=== PATIENT | female | born 1995 | race Caucasian/White ===

== ENCOUNTER 2017-02-18 16:03 | Emergency (ER) | payer OTHER ==
[~2017-02-18] VITALS: Wt 67.5 kg
[~2017-02-18 16:03] MED LIST: CALC600T11 PO; FERR-31 PO; PRENAT PO
[2017-02-18] MEDS ORDERED: IBUP-1542 PO (16:47)
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
== END 2017-02-18 17:14 | disposition home or self-care (01) ==
LOC: FTE 16:03
DX: S49.92XA Unspecified injury of left shoulder and upper arm, initial encounter (principal); V49.40XA Driver injured in collision with unspecified motor vehicles in traffic accident, initial encounter
CPT/HCPCS: 99283

== ENCOUNTER 2017-02-28 21:01 | Emergency (ER) | payer OTHER ==
[~2017-02-28] VITALS: Ht 154.9 cm; Wt 67.5 kg
[~2017-02-28 21:01] MED LIST changes: +IBUP-1542 PO
[2017-02-28 21:04] VITALS: Ht 154.9 cm; Wt 67.5 kg
[2017-02-28] MEDS ORDERED: IBUP-1542 PO (21:37)
--- NOTE | 2017-02-28 21:53 | ERD ---
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 Patient described the pain as throbbing pain, 6/10 scale, intermittent, worse upon movement. Patient denies any direct trauma and affected area. Patient denies any numbness or tingling. Patient denies any difficulty movement of the joints. She denies any numbness or tingling. ROS All systems reviewed and are negative except as per history of present illness. Medications Home Meds Active Scripts Ibuprofen* (Motrin*) 600 Mg Tab, 600 MG PO Q6H Y for PAIN AND OR ELEVATED TEMP, #30 TAB Prov:AMAURI MORRISON NP 02/28/17 Ibuprofen* (Motrin*) 600 Mg Tab, 600 MG PO Q6, #30 TAB Prov:LAQUITA ATKINSON PA-C 02/18/17 Reported Medications Calcium Carbonate* (Calcium Carbonate*) 600 MG Ca Tab, 600 MG PO DAILY, TAB 11/30/15 Ferrous Sulfate (Iron Supplement) 1 Tab Tablet, 1 TAB PO, TAB 11/30/15 Multivit/Min/Fol Ac/Iron/Pren* ( S*) 1 Tab Tab, 1 TAB PO DAILY, TAB 09/02/15 Allergies Allergies: Coded Allergies: No Known Drug Allergies (Verified Allergy, Unknown, 02/28/17) PMhx/Soc Medical and Surgical Hx: pt denies Medical Hx, pt denies Surgical Hx History of Surgery: No (DENIES MEDICAL AND SURGICAL HX.) Anesthesia Reaction: No Hx Neurological Disorder: No Hx Respiratory Disorders: No Hx Cardiac Disorders: No Hx Psychiatric Problems: No Hx Miscellaneous Medical Probl: No Hx Alcohol Use: No Hx Substance Use: No Hx Tobacco Use: No Smoking Status: Never smoker FmHx Family History: No coronary disease, No diabetes, No other Physical Exam Vitals Vital Signs Date Time Temp Pulse Resp B/P Pulse Ox O2 Delivery O2 Flow Rate FiO2 02/28/17 21:04 99.9 110 18 114/76 98 Physical Exam GENERAL: The patient is well developed and appropriate for usual state of health, in no apparent distress. CHEST: Clear to auscultation bilaterally. There are no rales, wheezes or rhonchi. HEART: Regular rate and rhythm. No murmurs, clicks, rubs or gallops. No S3 or S4. ABDOMEN: Soft, nontender and nondistended. Good bowel sounds. No rebound or guarding. No gross peritonitis. No gross organomegaly or masses. No Oakley sign or McBurney point tenderness. BACK: No midline or flank tenderness. EXTREMITIES: Mild tenderness on palpation on the palmar aspect of the right hip and in the fourth digit of the right hand, able to do full range of motion without any restriction. Equal pulses bilaterally. Full range of motion of other joints of the body. Grossly neurovascularly intact. NEURO: Alert and oriented. Cranial nerves 2-12 intact. Motor strength in all 4 extremities with 5/5 strength. Sensation grossly intact. Normal speech and gait. SKIN: There is no apparent rash or petechia. The skin is warm and dry. HEMATOLOGIC AND LYMPHATIC: There is no evidence of excessive bruising or lymphedema. No gross cervical, axillary, or inguinal lymphadenopathy. Procedures/MDM Medical Decision Making: Patient's pain is most likely consistent with a hand strain. There is no suspicion for neurovascular compromise. Patient has intact sensation and circulation of the affected extremity. There is low suspicion for septic arthritis. Patient does not have any fever. Radiology exams of the affected area does not show any fracture or dislocation. Disposition: Home. Patient is given prescription for ibuprofen for pain. Patient was advised to elevate the affected area and apply ice on affected area. Patient was advised that if symptoms are worse, numbness, tingling, high fever, unable to move joint, worsening symptoms, to return to emergency department immediately. Otherwise, patient is advised to follow up with the primary care doctor in 5-7 days for reevaluation of symptoms. Departure Diagnosis: Primary Impression: Hand strain Encounter type: initial encounter Laterality: right Qualified Code: S66.911A - Hand strain, right, initial encounter Condition: Stable Patient Instructions: Sprain Hand AMAURI MORRISON NP Feb 28, 2017 21:53
[2017-03-01] MEDS ORDERED: IBUP-1542 PO (21:14)
== END 2017-02-28 22:29 | disposition home or self-care (01) ==
LOC: FTE 21:01
DX: S66.911A Strain of unspecified muscle, fascia and tendon at wrist and hand level, right hand, initial encounter (principal); X50.9XXA Other and unspecified overexertion or strenuous movements or postures, initial encounter; Y92.9 Unspecified place or not applicable
CPT/HCPCS: 99283

== ENCOUNTER 2017-03-01 19:16 | Emergency (ER) | payer OTHER ==
[~2017-03-01] VITALS: Ht 157.5 cm; Wt 67.0 kg
[~2017-03-01 19:16] MED LIST changes: +CLIN-73 PO; +LEVO50TA74 PO; +ONDA-43 PO
[2017-03-01 19:20] VITALS: Ht 157.5 cm; Wt 67.0 kg
[2017-03-01] MEDS ORDERED: IBUPROFEN 600 MG TAB PO ONE (20:00)
[2017-03-01] MEDS ORDERED: LORAZEPAM 1 MG TAB PO ONE (20:00)
--- NOTE | 2017-03-01 21:04 | RADRPT ---
PROCEDURE: XR Chest. CLINICAL INDICATION: Chest pain. TECHNIQUE: Single frontal chest x-ray. COMPARISON: None available. FINDINGS: The cardiomediastinal silhouette is unremarkable. No pneumothorax, pleural effusion or consolidation is seen. No acute osseous abnormality is noted. IMPRESSION: 1. No acute cardiopulmonary abnormality. RPTAT: HFN .Josep Mazariegos MD, MD Date Time Electronically viewed and signed by .Josep Mazarigeos MD, on 03/01/2017 21:04 .N/
[2017-03-01] MEDS ORDERED: IBUP-1542 PO (21:14)
[2017-03-01 21:20] VITALS: BP 122/71; PULSE 91; RESP 18; TEMP 98.9
--- NOTE | 2017-03-01 23:15 | ERD ---
ER Documentation Chief Complaint Date/Time DATE: 03/01/17 TIME: 23:12 Chief Complaint MID STERNAL CP RADIATING TO RIGHT ARM SINCE AM. DENIES SOB. HPI This patient is a 21-year-old female with no significant medical history presenting to the emergency department with complaints of midsternal chest pain radiating to the right arm since this morning. Symptoms have been constant and she describes chest pain as sharp and pressure. She denies any shortness of breath. She has never had these symptoms before. She denies history of anxiety. She reports a tingling feeling in the right hand. She has had a moderate amount of stress in her life currently. She denies nausea, vomiting, diarrhea, fevers, chills, dizziness, headache, or other symptoms. ROS All systems reviewed and are negative except as per history of present illness. Medications Home Meds Active Scripts Ibuprofen* (Motrin*) 600 Mg Tab, 600 MG PO Q6, #30 TAB Prov:GALE NASH PA-C 03/01/17 Ibuprofen* (Motrin*) 600 Mg Tab, 600 MG PO Q6H Y for PAIN AND OR ELEVATED TEMP, #30 TAB Prov:AMAURI MORRISON NP 02/28/17 Ibuprofen* (Motrin*) 600 Mg Tab, 600 MG PO Q6, #30 TAB Prov:LAQUITA ATKINSON PA-C 02/18/17 Reported Medications Calcium Carbonate* (Calcium Carbonate*) 600 MG Ca Tab, 600 MG PO DAILY, TAB 11/30/15 Ferrous Sulfate (Iron Supplement) 1 Tab Tablet, 1 TAB PO, TAB 11/30/15 Multivit/Min/Fol Ac/Iron/Pren* ( S*) 1 Tab Tab, 1 TAB PO DAILY, TAB 09/02/15 Allergies Allergies: Coded Allergies: No Known Drug Allergies (Verified Allergy, Unknown, 02/28/17) PMhx/Soc History of Surgery: No (DENIES MEDICAL AND SURGICAL HX.) Anesthesia Reaction: No Hx Neurological Disorder: No Hx Respiratory Disorders: No Hx Cardiac Disorders: No Hx Psychiatric Problems: No Hx Miscellaneous Medical Probl: No Hx Alcohol Use: No Hx Substance Use: No Hx Tobacco Use: No Smoking Status: Never smoker Physical Exam Vitals Vital Signs Date Time Temp Pulse Resp B/P Pulse Ox O2 Delivery O2 Flow Rate FiO2 03/01/17 21:20 98.9 91 18 122/71 99 Room Air 03/01/17 19:20 100.4 101 20 118/75 99 Physical Exam Const: Nontoxic, well-appearing female in no acute distress. Head: Atraumatic Eyes: Normal Conjunctiva ENT: Normal External Ears, Nose and Mouth. Neck: Full range of motion..~ No meningismus. Resp: Clear to auscultation bilaterally Cardio: Regular rate and rhythm, no murmurs. There is chest wall tenderness palpation over the sternum and the left side of the chest. Abd: Soft, non tender, non distended. Normal bowel sounds Skin: No petechiae or rashes Back: No midline or flank tenderness Ext: No cyanosis, or edema Neur: Awake and alert Psych: Normal Mood and Affect Results 24 hrs Current Medications Medications (Trade) Dose Ordered Sig/Rivera Route PRN Reason Start Time Stop Time Status Last Admin Dose Admin Lorazepam (Ativan) 1 mg ONCE ONCE PO 03/01/17 20:00 03/01/17 20:01 DC 03/01/17 19:50 Ibuprofen (Motrin) 600 mg ONCE ONCE PO 03/01/17 20:00 03/01/17 20:01 DC 03/01/17 19:50 Procedures/MDM 21-year-old female presents to the emergency department with complaints of chest pain and tingling in the right arm. Physical examination showed mild temperature 100.4F, which may be reactive secondary to pain or anxiety. She was given Ativan and ibuprofen in the department and temperature reduced to 98.9 F prior to discharge. The patient is feeling improved on reevaluation. I low suspicion for acute coronary syndrome, aortic dissection, pneumothorax, or other emergent etiologies. Chest x-ray was negative for acute abnormalities. The patient was stable for discharge with a prescription for ibuprofen. Most likely differential is costochondritis. The patient is to have close follow-up with her primary care physician. She is to return immediately for any new or worsening symptoms. PROCEDURE: XR Chest. CLINICAL INDICATION: Chest pain. TECHNIQUE: Single frontal chest x-ray. COMPARISON: None available. FINDINGS: The cardiomediastinal silhouette is unremarkable. No pneumothorax, pleural effusion or consolidation is seen. No acute osseous abnormality is noted. IMPRESSION: 1. No acute cardiopulmonary abnormality. RPTAT: HFN .Josep Mazariegos MD, Date Time Electronically viewed and signed by .Josep Mazariegos MD, on 03/01/2017 21: 04 EKG: Interpreted by ED physician, Dr. Glynn Bolivar Rate/Rhythm: Normal sinus rhythm with a rate of [address] bpm[address] QRS, ST, T-waves: No changes consistent w/ acute ischemia Impression: No evidence of ischemia or arrhythmia Departure Diagnosis: Primary Impression: Costochondral chest pain Additional Impression: Anxiety reaction Condition: Fair Patient Instructions: Your Body's Response to Anxiety, Chest Wall Pain, Costochondritis Additional Instructions: Follow up with your PCP within the next 1-3 days for a repeat evaluation. If you require a referral to a specialist, your Primary Care Provider may be able to provide this for you. In most patient cases, a referral is not required. If you have further questions regarding this matter, please ask your Primary Care Provider. Return the the emergency department immediately if symptoms worsen or change. If you have any questions regarding medications, ask your pharmacist or us before you leave. If any adverse reactions, occur while taking your medications, discontinue the treatment and return to the emergency department immediately. If any new or worsening symptoms, uncontrolled fevers, or other unexplained symptoms occur, return to the emergency department immediately. Take your medications as directed, and complete the entire course of treatment. GALE NASH PA-C Mar 01, 2017 23:15
== END 2017-03-01 21:22 | disposition home or self-care (01) ==
LOC: FTE 19:16
DX: M94.0 Chondrocostal junction syndrome [Tietze] (principal); F41.9 Anxiety disorder, unspecified
CPT/HCPCS: 71010; 93005; Z7502; Z7610

== ENCOUNTER 2017-03-14 15:58 | Emergency (ER) | payer OTHER ==
[~2017-03-14] VITALS: Ht 157.5 cm; Wt 67.0 kg
[~2017-03-14 15:58] MED LIST changes: -CLIN-73 PO; -LEVO50TA74 PO; -ONDA-43 PO
[2017-03-14 16:00] VITALS: Ht 157.5 cm; Wt 67.0 kg
[2017-03-14] MEDS ORDERED: ALBUTEROL 0.083% (NEB) 2.5 MG/3 ML AMP HHN STA (19:18)
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
[2017-03-14] MEDS ORDERED: DEXAMETHASONE 10 MG/ML 1 ML INJ PO ONE (19:30)
[2017-03-14] MEDS ORDERED: IPRATROPIUM (NEB) 0.5 MG/2.5 ML AMP HHN ONE (19:30)
[2017-03-14] MEDS ORDERED: ALBU8.5H3 INH (19:53)
[2017-03-14] MEDS ORDERED: HC30CR25 TOP (19:53)
[2017-03-14] MEDS ORDERED: IBUP-1542 PO (19:54)
[2017-03-14] MEDS ORDERED: BEN25 PO (19:54)
== END 2017-03-14 20:56 | disposition home or self-care (01) ==
LOC: FTE 15:58
DX: R21 Rash and other nonspecific skin eruption (principal); R07.9 Chest pain, unspecified; J45.909 Unspecified asthma, uncomplicated
CPT/HCPCS: 93005; 94664; J1100; Z7502; Z7610